=== PATIENT | male | born 1970 | race Caucasian/White ===

== ENCOUNTER 2021-06-14 05:05 | Emergency (ER) | payer BC ==
[2021-06-14 06:58] LABS: HEMOGLOBIN 16.6 gm/dl (14.0-17.5); RED BLOOD COUNT 5.51 M/UL (4.20-5.50); WHITE BLOOD COUNT 10.6 K/UL (4.5-11.0)
[2021-06-14 07:22] LABS: BUN/CREATININE RATIO 19 (0-10)
== END 2021-06-14 08:15 | disposition home or self-care (01) ==
LOC: ER1 05:05
PROVIDERS: Nurse Practitioner
DX: R53.1 Weakness (principal); E78.5 Hyperlipidemia, unspecified; I10 Essential (primary) hypertension; Z88.0 Allergy status to penicillin
CPT/HCPCS: 70450; 71045; 80053; 82550; 82553; 83874; 84484; 85025; 93005; 99285; J7030